=== PATIENT | male | born 1990 | race African-American/Black ===

== ENCOUNTER 2019-03-25 16:54 | Emergency (ER) | payer SELFPAY ==
[~2019-03-25] VITALS: Ht 165.1 cm; Wt 90.0 kg
[~2019-03-25 16:54] MED LIST: DOXY100C49; DOXY150T5 PO; FLUC100T PO; HYDR2TAB4; LEVO250S PO; ONDA4TAB21
[2019-03-25] MEDS ORDERED: CEFTRIAXONE SODIUM 1 G/VIAL IM ONE (20:45)
[2019-03-25] MEDS ORDERED: LIDOCAINE HCL 1% 20ML VIAL (Pyxis) INJ INFIL ONE (20:45)
[2019-03-25 21:02] VITALS: BP 125/67
== END 2019-03-25 21:03 | disposition home or self-care (01) ==
LOC: ER 16:54
DX: Z22.322 Carrier or suspected carrier of Methicillin resistant Staphylococcus aureus (principal)
CPT/HCPCS: 96372; 99283; J0696; J3490